=== PATIENT | male | born 1970 | race Caucasian/White ===

== ENCOUNTER 2023-10-08 13:37 | Emergency (ER) | payer MEDICARE, MEDICAID, SELFPAY ==
--- NOTE | ~2023-10-08 | CT_ITS ---
EXAMINATION: CT CERVICAL SPINE WITHOUT CONTRAST CLINICAL INFORMATION: History of cervical surgery. COMPARISON: None available. TECHNIQUE: Multidetector helical imaging of the cervical spine was obtained without intravenous contrast. Multiple axial reformats and coronal/sagittal reconstructions were created the technologist workstation for review. This CT examination was performed using dose optimization techniques as appropriate, variously including the following: *Automated exposure control. *Adjustment of mA and/or kV according to patient size (this includes techniques or standardized protocols for targeted exams where dose is matched to indication/reason for exam; i.e. extremities or head). *Use of iterative reconstruction technique. DLP: 572 mGy-cm FINDINGS: Instrumented anterior fusion of C4-C6. No evidence of hardware fracture or loosening. The atlantooccipital and atlantoaxial articulations remain well aligned. Moderate degenerative arthropathy of the atlantodental articulation. Straightening of the normal cervical lordosis. Otherwise, there is anatomic alignment of the vertebral bodies and posterior elements. No evidence of acute fracture or subluxation. The vertebral body heights are maintained. Moderate degenerative disc disease from C2-C4 and at C6-C7. There is no prevertebral soft tissue swelling. The thyroid gland and remaining cervical soft tissues are within normal limits. The lung apices demonstrate no abnormalities. SPINAL LEVELS: C2-C3: Normal annular contour. There is no uncovertebral joint arthropathy. There is no facet joint arthropathy. There is no neural foraminal stenosis. There is no demonstrated spinal canal stenosis. C3-C4: Mild to moderate disc-osteophyte complex. There is moderate bilateral uncovertebral joint arthropathy. There is moderate right and mild left facet joint arthropathy. There is severe right and moderate left neural foraminal stenosis. There appears to be mild spinal canal stenosis. C4-C5: Fused at this level. There is no uncovertebral joint arthropathy. There is mild bilateral facet joint arthropathy. There is no neural foraminal stenosis. There is no demonstrated spinal canal stenosis. C5-C6: Fused at this level. There is mild bilateral uncovertebral joint arthropathy. There is moderate bilateral facet joint arthropathy. There is mild bilateral neural foraminal stenosis. There is no demonstrated spinal canal stenosis. C6-C7: Mild disc-osteophyte complex. There is mild bilateral uncovertebral joint arthropathy. There is mild bilateral facet joint arthropathy. There is mild bilateral neural foraminal stenosis. There is no demonstrated spinal canal stenosis. C7-T1: Normal annular contour. There is mild bilateral uncovertebral joint arthropathy. There is no facet joint arthropathy. There is no neural foraminal stenosis. There is no demonstrated spinal canal stenosis. CT/CT cervical spine wo IV con IMPRESSION: 1. Instrumented anterior fusion of C4-C6. No evidence of hardware fracture or loosening. 2. No evidence of acute fracture or traumatic subluxation of the cervical spine. 3. Moderate multilevel degenerative spondyloarthropathy of the cervical spine as described in detail above. Most notably on this limited exam without intrathecal contrast, there appears to be mild spinal canal stenosis at C3-C4. Moderate to severe neural foraminal stenoses at C3-C4. Electronically signed by: Rojelio Mosqueda DO 10/08/2023 08:00 PM EDT
--- NOTE | 2023-10-08 13:51 | ED_ITS ---
HPI - General Adult General Chief complaint: Neck Pain/Injury Stated complaint: neck pain Time Seen by Provider: 10/08/23 17:36 Source: patient Mode of arrival: ambulatory Limitations: no limitations History of Present Illness ED Provider: vadim TRISTAN narrative: Patient is a 53-year-old male with history of chronic neck pain, prior cervical surgery with titanium implants presenting to the emergency department with complaint of bilateral neck and shoulder pain for the past 3 days. States this pain is different from his typical chronic pain and is more muscular and spasm sensation. He is prescribed diclofenac and cyclobenzaprine but did not take these for his pain. Denies any weakness, numbness, or tingling to arms. Denies fall or other trauma, denies heavy lifting. Denies fevers/chills/body aches. MD complaint: neck and shoulder pain Onset (ago): day(s) Quality: aching Pain Consistency: constant Relieving factors: none Associated symptoms: denies other symptoms Treatments prior to arrival: none Related Data Previous Rx's ?Medication ?Instructions ?Recorded lidocaine 5 % topical patch 1 patch topical DAILY #15 ea 10/08/23 Allergies Allergy/AdvReac Type Severity Reaction Status Date / Time No Known Allergies Allergy Verified 10/08/23 13:56 Review of Systems 2 Review of Systems: As per HPI. Yes all other systems are reviewed and are negative Constitutional: Constitutional: Reports as per HPI [facility] Social History Social History Advance Directives: No Advance Directives Information Provided: No Physical Exam ED Vital Signs: Vital Signs - 24 hr 10/08/23 13:52 10/08/23 17:39 Temperature 97.9 F 97.8 F Pulse Rate 84 74 Respiratory Rate 16 16 Blood Pressure 138/85 131/83 Pulse Oximetry 99 99 Oxygen Delivery Method Room Air Room Air BMI result Body Mass Index 31.1 Vital signs have been reviewed and appear to be correct. Blood pressure normal. Heart rate normal. Respiratory rate normal. Temperature normal. Oxygen saturation normal. Const General: cooperative, healthy appearing and no acute distress Orientation/consciousness: oriented to person, oriented to place, oriented to time and patient oriented x3 Limitations: no limitations HENMT Head: Yes normocephalic and Yes atraumatic Ears: external ears normal General nose exam: Normal external nose present Face and sinus: Yes face symmetric Mouth: oropharynx normal and moist mucous membranes Throat: Yes uvula midline Eyes Pupils: Equal, round and reactive pupils present Neck Neck: Yes normal visual inspection, Yes full ROM, Yes no lymphadenopathy, Yes no meningeal signs, Yes trachea midline, Yes supple and No anterior neck swelling Resp Effort & Inspection: normal respiratory effort and able to speak in complete sentences Auscultation: clear to auscultation bilaterally Cardio Rate: regular rate Rhythm: regular rhythm Heart sounds: S1 normal heart sound present and S2 normal heart sound present GI Palpation (GI): Soft to palpation and nontender Auscultation: normoactive bowel sounds General: Yes no CVA tenderness Back/Spine/Pelvis Back: no CVA tenderness Cervical Spine: normal cervical lordosis, cervical ROM normal, cervical muscular tenderness (lateral bilaterally), pain with cervical ROM, No Cervical spine tenderness and No step off deformity Thoracic/Lumbar Spine: thoracic and lumbar spine normal to inspection, No thoracic spinal tenderness and No lumbar spinal tenderness Skin General skin exam: elasticity normal and turgor normal Neuro General: oriented to person, oriented to place, oriented to time, patient oriented x3, moves all extremities, no meningeal signs, no focal motor deficits and CN's II-XI intact bilaterally Cranial nerves: Yes Equal, round and reactive pupils present Cognition (Neuro): normal cognition Extrem General: Yes full ROM, Yes no pedal edema and Yes no calf tenderness Right upper extremity: shoulder/upper arm Details: normal to inspection, tenderness (trapezius) and normal ROM Left upper extremity: shoulder/upper arm Details: inspection abnormal and tenderness (trapezius) Psych Mental Status: mental status grossly normal Affect: normal affect Thought process: Normal thought process present Course Course Course Narrative: RME performed by Nimisha Da Silva PA-C. Patient is a 53 year old assigned male at presenting to the emergency department with neck pain. Patient states that he has had surgery for this pain in 2013 but now it is back and worse. Detailed physical exam and review of systems are deferred to the supervisor underwriting clerks. EKG, labs, and imaging ordered. Patient placed back in the waiting room pending room availability and results. Reevaluation(s) Reevaluation #1: CT/CT cervical spine wo IV con IMPRESSION: 1. Instrumented anterior fusion of C4-C6. No evidence of hardware fracture or loosening. 2. No evidence of acute fracture or traumatic subluxation of the cervical spine. 3. Moderate multilevel degenerative spondyloarthropathy of the cervical spine as described in detail above. Most notably on this limited exam without intrathecal contrast, there appears to be mild spinal canal stenosis at C3-C4. Moderate to severe neural foraminal stenoses at C3-C4. Updated on plan of care, advised use of previously prescribed medications including cyclobenzaprine in addition to conservative treatment and Lidoderm patches, outpatient follow-up primary care doctor. No neurological deficits. Stable for discharge Time: 20:17 Medications Administered Discontinued Medications Generic Name Dose Route Start Last Admin Trade Name Cherie PRN Reason Stop Dose Admin Cyclobenzaprine HCl 10 mg 10/08/23 18:41 10/08/23 19:22 Cyclobenzaprine Hcl 10 Mg Tablet PO 10/08/23 18:42 10 mg ONCE ONE Administration Lidocaine 2 patch 10/08/23 18:41 10/08/23 19:22 Lidocaine 4 % Patch Adh..Patch TRANSDERMA 10/08/23 18:42 2 patch ONCE ONE Administration Protocol Medical Decision Making Medical Decision Making [facility] Narrative: Patient is a 53-year-old male with history of chronic neck pain, prior cervical surgery with titanium implants presenting to the emergency department with complaint of bilateral neck and shoulder pain for the past 3 days. On exam patient is awake, A+Ox3, VS WNL, afebrile, normal neurological exam without focal deficits, physical exam findings as above. Given reported symptoms and physical exam findings, initial differential includes cervical muscle strain, shoulder strain, cervical radiculopathy. Labs unremarkable. Flexeril and lidocaine patches ordered. Patient signed out to SALONI Sarmiento pending results of CT scan. Differential Diagnosis Differential Diagnoses: The differential diagnosis associated with the presentation includes As per [facility]. Admission/Observation Consideration of admission/observation: Escalation of care including admission/observation considered Pending results of CT scan. Lab Data [facility] Lab Attestation statement: I reviewed the patient's lab results. As per [facility] 10/08/23 14:05 10/08/23 14:05 Labs: Lab Results 10/08/23 Range/Units 14:05 WBC 6.8 (4.8-10.8) X10*3/uL RBC 4.90 (4.60-5.80) X10*6/uL Hgb 14.5 (14.0-18.0) g/dl Hct 42.4 (42.0-52.0) % MCV 86.5 (80.0-98.0) fL MCH 29.6 (27.0-33.0) pg MCHC 34.2 (31.0-36.0) g/dl RDW 13.2 (11.0-16.0) % Plt Count 256 (160-400) X10*3/uL MPV 10.0 (9.4-12.4) fL Immature Gran % (Auto) 0.1 (0.0-0.4) % Neut % (Auto) 59.1 (45-73) % Lymph % (Auto) 28.2 (20-40) % Sterling % (Auto) 10.0 (2-11) % Eos % (Auto) 2.2 (0-4) % Baso % (Auto) 0.4 (0-2) % Lymph # (Auto) 1.9 (1.2-4.9) X10*3/uL Sterling # (Auto) 0.7 (0.1-1.2) X10*3/uL Eos # (Auto) 0.2 (0.0-0.4) X10*3/uL Baso # (Auto) 0.0 (0.0-0.2) X10*3/uL Abs Immat Gran (auto) 0.01 (0.00-0.03) X10*3/uL Absolute Neuts (auto) 4.0 (2.0-8.3) x10*3/uL Absolute Nucleated RBC 0.000 (0.0-0.012) X10*3/uL Nucleated RBC % (auto) 0.0 (0.0-0.2) /100WBC Sodium 140 (135-145) mmol/L Potassium 4.1 (3.3-5.1) mmol/L Chloride 107 (96-108) mmol/L Carbon Dioxide 26 (22-29) mmol/L Anion Gap 11 L (12-20) BUN 20 H (9-16) mg/dL Creatinine 0.96 (0.5-1.4) mg/dL Estim Creat Clear Calc 101.4 Estimated GFR > 60 Random Glucose 140 H (60-115) mg/dL Calcium 8.7 (8.4-10.2) mg/dL Magnesium 2.0 (1.6-2.6) mg/dL Total Bilirubin 0.3 (0.0-1.0) mg/dL AST 19 (5-37) U/L ALT 33 (0-40) U/L Alkaline Phosphatase 79 (39-117) U/L Troponin I High Sens < 2.7 (<3.5-35.0) ng/L Total Protein 7.0 (6.5-8.0) g/dL Albumin 4.1 (3.5-5.0) g/dL External Record Review External record reviewed: Inpatient record, Office record and Outpatient record Prescription Management I considered prescription management with: Pain Medication Discharge Plan Discharge Clinical Impression: Strain of neck muscle, Strain of shoulder, Cervical radiculopathy Patient Disposition: Home, Self-Care Instructions: Cervical Strain (DC), Muscle Strain (DC) Additional Instructions: You were evaluated in the emergency department with complaint of neck and shoulder pain. Your imaging did not show any evidence of a fracture or other concerning findings. Your pain is likely related to a muscle strain. We recommend taking 600mg ibuprofen or 650mg Tylenol. If necessary, you can alternate these medications every three hours. For example, at noon take Tylenol, then at 3:00 take ibuprofen, then at 6:00 take Tylenol, etc. We recommend that you take your prescribed muscle relaxer called cyclobenzaprine. You are being prescribed topical lidocaine patches which you can wear for up to 12 hours in a 24 hour period. Do not use these in combination with your diclofenac gel. You should follow up with your primary care provider as you may require physical therapy to improve your symptoms. Return to the emergency department if you develop worsening neck pain or stiffness, new weakness, numbness, or tingling to your arm, severe headaches, or any other concerning symptoms. Prescriptions: New lidocaine 5 % adhesive patch,medicated 1 patch topical DAILY Qty: 15 0RF Rx Instructions: leave on most painful area for up to 12 hrs Print Language: [place]
[2023-10-08 13:52] VITALS: BP 138/85; PULSE 84; RESP 16; TEMP 36.6; O2SAT 99; BMI 31.1
--- NOTE | 2023-10-08 13:53 | ECG_ITS ---
Test Reason : NECK PAIN Blood Pressure : / mmHG Vent. Rate : 078 BPM Atrial Rate : 078 BPM P-R Int : 154 ms QRS Dur : 084 ms QT Int : 346 ms P-R-T Axes : 054 005 036 degrees QTc Int : 394 ms Normal sinus rhythm Normal ECG No previous ECGs available Referred By: Nimisha Da Silva Electronically Signed By:DAPHNE SANCHEZ
[2023-10-08 14:10] LABS: MANUAL DIFF FLAG NO
[2023-10-08 14:13] LABS: Basophils Percent Auto 0.4 % (0-2); Eosinophils Absolute Auto 0.2 X10*3/uL (0.0-0.4); Eosinophils Percent Auto 2.2 % (0-4); Hematocrit 42.4 % (42.0-52.0); Hemoglobin 14.5 g/dl (14.0-18.0); Imm Gran Abs Auto 0.01 X10*3/uL (0.00-0.03); Imm Gran Pct Auto 0.1 % (0.0-0.4); Lymphocytes Absolute Auto 1.9 X10*3/uL (1.2-4.9); Lymphocytes Percent Auto 28.2 % (20-40); Mean Corpuscular HGB Conc 34.2 g/dl (31.0-36.0); Mean Corpuscular Hemoglobin 29.6 pg (27.0-33.0); Mean Corpuscular Volume 86.5 fL (80.0-98.0); Monocytes Absolute Auto 0.7 X10*3/uL (0.1-1.2); Neutrophils Percent Auto 59.1 % (45-73); Platelet Count 256 X10*3/uL (160-400); Red Cell Distribution Width 13.2 % (11.0-16.0); White Blood Count 6.8 X10*3/uL (4.8-10.8)
[2023-10-08 14:28] LABS: Alanine Aminotransferase 33 U/L (0-40); Albumin Level 4.1 g/dL (3.5-5.0); Alkaline Phosphatase 79 U/L (39-117); Anion Gap 11 (12-20); Aspartate Amino Transferase 19 U/L (5-37); Bilirubin Total 0.3 mg/dL (0.0-1.0); Blood Urea Nitrogen 20 mg/dL (9-16); Calcium 8.7 mg/dL (8.4-10.2); Carbon Dioxide 26 mmol/L (22-29); Chloride 107 mmol/L (96-108); Creatinine Clr Calc Pharmacy 101.4; Estimated Glomerular Filt Rate > 60; Glucose Random 140 mg/dL (60-115); Potassium 4.1 mmol/L (3.3-5.1); Sodium 140 mmol/L (135-145)
[2023-10-08 14:40] LABS: Troponin-I High Sensitivity < 2.7 ng/L (<3.5-35.0)
[2023-10-08 17:39] VITALS: BP 131/83; PULSE 74; RESP 16; TEMP 36.6; O2SAT 99
--- NOTE | 2023-10-08 17:41 | PC.NURSE ---
PT INTO ROOM WITH STABLE GAIT, HE CONTINUES TO ENDORSE NECK PAIN, AWAITING CT RESULTS AND PROVIDER
[2023-10-08] MEDS: Cyclobenzaprine HCl 10 MG TABLET PO (19:22)
[2023-10-08] MEDS: Lidocaine 4 % Patch ADH..PATCH 2 PATCH TRANSDERMA (19:22)
[2023-10-08 20:27] VITALS: BP 137/78; PULSE 76; RESP 14; TEMP 37; O2SAT 97
[2023-10-08 20:52] VITALS: BP 137/78; PULSE 76; RESP 14; TEMP 37; O2SAT 97
== END 2023-10-08 20:52 | disposition home or self-care (01) ==
PROVIDERS: Physician Assistant Medical; Emergency Provider Internal Medicine; PCP Internal Medicine
DX: M54.12 Radiculopathy, cervical region (principal); M54.2 Cervicalgia; M25.512 Pain in left shoulder; M25.511 Pain in right shoulder; M79.10 Myalgia, unspecified site; Z79.899 Other long term (current) drug therapy
CPT/HCPCS: 36415; 72125; 80053; 83735; 84484; 85025; 93005; 99284

== ENCOUNTER 2024-01-16 14:27 | Outpatient (AMB) | payer MEDICARE, MEDICAID, SELFPAY ==
--- NOTE | 2024-01-16 15:26 | HO.SPINEOV ---
Intake Visit Reasons: Neck pain Intake Note: Mr. Schafer is here today c/o neck pain. Uniformer Required: Yes Uniformer Name: Tablet Allergies No Known Allergies Allergy (Verified 01/16/24 15:27) Assessment & Plan Assessment & Plan (1) Lumbar radiculopathy: Code(s): M54.16 - Radiculopathy, lumbar region Category: Medical Plan Lasha is a pleasant 53 year old male who is self referred to our office for low back pain with shooting pains into his bilateral lower extremities. He states this has been ongoing for the past 8 days. When reporting the shooting pain he states that it goes down the lateral aspect of both legs terminating near the calf. He states that when his pain is exacerbated he also feels numbness and tingling in the same distribution. He describes an inciting incident of bending over to brick picker a water bottle he days ago during which time he felt a pop in his low back. He has a pertinent past medical history of 2 spinal procedures. He had an L3-5 lumbar fusion completed in June of 2012 in [place]. He also had a C3-4 ACDF completed in 2011 in [place]. He does feel as though he has good results from these surgeries. He reports that sitting for prolonged periods of time exacerbates his pain. Standing helps to alleviate his pain. He has been taking baclofen, gabapentin, diclofenac gel on an effort to mitigate the pain. He also has tried [id number] remedies such as Tylenol and ibuprofen. The last time that he went to physical therapy was back in 2011. He has had injections in his lumbar spine as recently as [address] Aiken at [facility]. He felt these injections were modestly helpful but were short-lived. PMH: High blood pressure, hyperlipidemia. Prediabetes on metformin monotherapy. Social hx: The patient does not smoke, reports no substance use. Medications: Baclofen, gabapentin, diclofenac gel, losartan, metformin, atorvastatin, cyclobenzaprine. Allergies: No known drug allergies. Physical exam: The patient has 5/5 strength in his upper and lower extremities. He has no significant sensational deficits. His reflexes are 2+ intact. He ambulates well but has a slightly antalgic gait favoring the left side. He utilizes a cane to ambulate. (-) bilateral straight leg raise, (-) Adan's, (-) Babinski's, (-) clonus. Imaging review: There was no pertinent imaging to review in regards to his lumbar spine. The only imaging is a CT of the cervical spine completed at [facility] over the summer. Impression: Lasha is a pleasant 53-year-old male who comes in today with a chief complaint of low back pain and shooting pains into his bilateral lower extremities. He reports this is acute onset and happened roughly 8 days ago. He has not attempted any conservative measures for this issue as of yet. He does have a history of 2 previous spinal procedures, but is history and disclosure were most consistent with a acute disc herniation versus hardware malfunction. I would like to send the patient for a course of physical therapy to see if the symptoms do not resolve on their own as many cases of disc herniation are self-limiting. If it does not resolve I would like see him back in the clinic for subsequent evaluation and possible imaging studies. Thank you for allowing us to care for your patient. The total time spent with this visit with this patient was 45 minutes reviewing history, physical exam, MRI imaging review, and implementation of treatment plan or further diagnostic testing Adonay Gorman MD,PhD [facility] Orders: Orders PT Evaluation and Treatment 01/16/24 M54.16 - Radiculopathy, lumbar region Coding Level of Care Code New Pt Level 4 (49984) Diagnoses Lumbar radiculopathy M54.16
== END 2024-01-16 15:51 | disposition home or self-care (01) ==
PROVIDERS: PCP Internal Medicine; Visit Provider Physician Assistant
DX: M54.16 Radiculopathy, lumbar region (principal)
CPT/HCPCS: 99204

== ENCOUNTER → 2024-01-16 14:27 | Outpatient (BNVA) | payer MEDICARE, MEDICAID, SELFPAY | PROVIDERS: PCP Internal Medicine; Visit Provider Physician Assistant | DX: M54.16 Radiculopathy, lumbar region (principal) | CPT/HCPCS: 99202 ==

== ENCOUNTER 2024-03-18 15:09 | Outpatient (RCR) | payer MEDICARE, MEDICAID, SELFPAY ==
--- NOTE | 2024-01-31 11:45 | MHC.PT.EP ---
[facility] [place] Office [place] Office [place] Office [address] Julio Lino [address] [phone] F: [phone] F: [phone] F: [phone] F: [phone] Physical Therapy Plan of Care Date of Evaluation: 01/29/24 Date of Surgery: 2011 Diagnosis: Radiculopathy, lumbar region Pt has history of spine surgery L3-L5 fusion Assessment: Pt is a pleasant and motivated 53yo M who presents to PT with low back pain with intermittent radicluar symptoms in LE's after bending down to meat pickler a water bottle. He has history of L3-L5 lumbar fusion in 2011. He presents to PT with current impairments in pain, decreased ROM, decreased core stabilization, decreased strength, soft tissue restrictions, impaired posture, and impaired body mechanics. He is a good candidate for skilled PT in order to address current impairments to facilitate return to PLOF. He is recommended to be seen 2x/week for 4 weeks and will be reassessed at that time Frequency and Duration: The patient will be seen 2x/week for 4 weeks Short Term Goals: Pt will be I with HEP to promote self management of symptoms Pt will have centralization of symptoms Custodial Goals: Pt will demonstrate ability to squat and meat pickler object from floor with proper mechanics and minimal to no pain or discomfort Pt will tolerate prolonged standing and walking on even and uneven surfaces without pain or discomfort Pt will demonstrate improvements in function as evidenced by statistically significant improvement in LEFI outcome measure Treatment Plan: Modalities to reduce pain, spasms and effusion. Manual therapy to restore motion and function. Therapeutic exercise to improve strength and flexibility. Neuromuscular re-education for posture and balance. Therapeutic activities to return to functional activities of daily living. Electronically signed by: Elaine Lopez, PT, DPT Please sign and return to therapist. Thank you for your referral.
--- NOTE | 2024-03-18 17:23 | MHC.PT.DC ---
[facility] [place] Office [place] Office [place] Office [address] Julio Lino [address] [phone] F: [phone] F: [phone] F: [phone] F: [phone] Physical Therapy Discharge Report Diagnosis: Radiculopathy, lumbar region Pt has history of spine surgery L3-L5 fusion Date of Surgery: 2011 Date of Evaluation: 01/29/24 Date of Discharge: 03/18/24 Treatments to Date: 12 Cancellations to Date: No Shows to Date: Discharge Status: Improved Function Independent with HEP Discharge Summary: Pt has made good progress since SOC. He met his STGs and is making good progress toward his LTGs. He has had a decrease in pain and has demonstrated improvements in strength and body mechanics noted throughout sessions. He is independent and compliant with HEP. He is being D/C from skilled PT at this time Electronically signed by: Elaine Lopez, PT, DPT Please sign and return to therapist. Thank you for your referral.
== END 2024-03-18 17:23 | disposition home or self-care (01) ==
LOC: HO.PT 15:09
PROVIDERS: PCP Internal Medicine; Visit Provider Physician Assistant
DX: M54.16 Radiculopathy, lumbar region (principal)
CPT/HCPCS: 97110; 97140; 97162; 97530

== ENCOUNTER 2025-01-23 11:05 | Outpatient (AMB) | payer MEDICAID, SELFPAY ==
--- NOTE | 2025-01-23 11:08 | MHC.OFFVIS ---
Vital Signs 01/23/25 11:25 Height 5 ft 9 in Weight 210 lb BMI 31.0 BP 150/77 H Blood Pressure Location Lt brachial Position Sitting Pulse 83 Pulse Source Pulse Oximeter Pulse Oximetry (%) 98 Oxygen Delivery Method Room Air Intake Visit Reasons: DISC DEGENERATION Intake Note: Pain today 07/22 [employer] Required: Yes [employer]ader Language: Tristanian Allergies No Known Allergies Allergy (Verified 01/16/24 15:27) HPI Comments Details: The patient is a 54 year old male presenting for an initial evaluation of chronic low back and neck pain. He has a history of chronic neck and low back pain that radiates from his neck down his shoulders to both legs. He underwent a C3-C4 anterior cervical fusion in 2011 and a lumbar surgery in 2012, both in [place]. A prior cervical spine MRI showed moderate spinal stenosis. He completed 12 sessions of physical therapy about a year ago with no improvement. Past treatments include Tylenol, ibuprofen, lidocaine patch, gabapentin, baclofen, diclofenac gel, and cyclobenzaprine. He also received multiple injections that provided minimal, short-lived relief and was previously followed by [facility] for 5 years. He was evaluated by the [facility] for neurosurgery in January 2024 and was advised to get an updated MRI and follow up, which has not yet occurred. The patient has a history of uncontrolled type 2 diabetes mellitus, with a recent A1c of 12.1 that has since decreased to 10.1. His A1c was reportedly 5.9 after returning from [place]. His fasting blood glucose this morning was 140. He takes metformin three times a day, which causes stomach upset, and glipizide. He reports symptoms of peripheral neuropathy in both feet, including numbness and tingling in his feet and burning pain worse at night. He has a family history of diabetes in his mother and his late [id number]. Regarding his diet, the patient states he adheres to a diabetic diet and has stopped drinking soda, now primarily drinking water, and has reduced his bread intake. Denies alcohol or tobacco consumption or recreational drug use. Pain Description - Location: Low back and neck. - Radiation: Pain travels from the neck, down the shoulders, to both legs. - Quality: The pain is described as constant, pulsing, trapping, stabbing, and aching. - Associated Symptoms: Numbness, burning and tingling. - Exacerbating Factors: Pain worsens with any movement, including walking, bending, and lifting, as well as with weather changes. - Impact on Function: The patient sometimes uses a cane for support when the pain is intense. Pain Management - Affect: Not explicitly discussed. - Analgesia: The patient has tried OTC Tylenol and ibuprofen. - Past medication trials include lidocaine patch, gabapentin, baclofen, diclofenac gel, and cyclobenzaprine. - He has also had multiple injections with minimal and short-lived relief and no improvement with PT. - Adverse Effects: He reports that metformin messed up his stomach. - Activities of Daily Living: Pain is present with any movement, including walking, bending, and lifting. - He uses a cane for support when pain is intense. - Aberrant Drug-Related Behaviors: No aberrant behaviors were discussed. [facility] Medical History (Updated 01/25/25 @ 22:11 by BERNADETTE Cruz) Type 2 diabetes mellitus Hypertension Disc degeneration, lumbar DDD (degenerative disc disease), cervical Anxiety ANTONIO (obstructive sleep apnea) Mixed hyperlipidemia Surgical History (Updated 01/23/25 @ 12:09 by BERNADETTE Cruz) History of fusion of cervical spine (~2011) History of lumbar surgery (~2012) Review of Systems Narrative - Musculoskeletal: Reports chronic low back and neck pain. - Reports pain with movement including walking, bending, and lifting. - Neurological: Reports pain that radiates down his shoulders to his legs. - Reports numbness and tingling in his extremities. - Reports burning and [id number] sensation in his feet. - Integumentary: Denies any open sores or wounds on his feet or lower extremities. Const All systems reviewed & are unremarkable except as noted in HPI and below Physical Exam Vital Signs: Last Vital Signs Pulse 83 01/23/25 11:25 BP 150/77 H 01/23/25 11:25 Pulse Ox 98 01/23/25 11:25 Oxygen Delivery Method Room Air 01/23/25 11:25 BMI result Body Mass Index 31.0 General: Appears afebrile. Alert and oriented. Mood and affect appropriate. Follows and participates in conversation appropriately. Respiratory effort is unlabored. No cough. Able to transition from sit to stand unassisted. Uses cane with ambulation. Ambulates with bilaterally normal heel strike and toe off. Mildly antalgic gait. General: Yes no CVA tenderness Back/Spine/Pelvis Other: Lumbar spine shows limited and painful flexion; extension is limited but not painful.Cervical range of motion is painful with flexion and extension; motion is limited due to prior fusion. Straight leg raise elicits posterior leg tightness without radicular symptoms. Patient reports altered sensation in the feet consistent with neuropathy including tingling, burning, and [id number]. Demonstrates 5/5 strength of quadriceps bilaterally as well as flexion/dorsiflexion of bilateral feet against resistance. 2+ pedal pulses bilaterally. Diminished patellar and achilles reflexes bilaterally. Facet loading test positive bilaterally. No groin pain with I/E hip rotations. Valsalva maneuver negative. Back: no CVA tenderness Cervical Spine: cervical ROM normal, cervical muscular tenderness, pain with cervical ROM, Cervical spine scars present and No Cervical spine tenderness Thoracic/Lumbar Spine: thoracic and lumbar spine normal to inspection, Thoracic/lumbar spine scar(s), Lasegue's sign negative, straight leg raise negative bilaterally, pain with thoraco-lumbar ROM, thoraco-lumbar ROM limited, No thoracic spinal tenderness and lumbar spinal tenderness (L4-S1) Sacroiliac joints: bilaterally (L>R; +David's on the left) tender to palpation Extrem Other: There is a decreased sensation over the soles of both feet and toes. Reports numbness, burning, tingling and bilateral foot pain, worse at night time. No breaks in the skin. No soft tissue swelling or warmth. +2 pedal pulses bilaterally. General: Yes capillary refill normal, Yes no clubbing, cyanosis or edema and Yes no calf tenderness Results Reviewed Results Reviewed: CT CERVICAL SPINE WITHOUT CONTRAST 10/08/23 CLINICAL INFORMATION: History of cervical surgery. COMPARISON: None available. FINDINGS: Instrumented anterior fusion of C4-C6. No evidence of hardware fracture or loosening. The atlantooccipital and atlantoaxial articulations remain well aligned. Moderate degenerative arthropathy of the atlantodental articulation. Straightening of the normal cervical lordosis. Otherwise, there is anatomic alignment of the vertebral bodies and posterior elements. No evidence of acute fracture or subluxation. The vertebral body heights are maintained. Moderate degenerative disc disease from C2-C4 and at C6-C7. There is no prevertebral soft tissue swelling. The thyroid gland and remaining cervical soft tissues are within normal limits. The lung apices demonstrate no abnormalities. SPINAL LEVELS: C2-C3: Normal annular contour. There is no uncovertebral joint arthropathy. There is no facet joint arthropathy. There is no neural foraminal stenosis. There is no demonstrated spinal canal stenosis. C3-C4: Mild to moderate disc-osteophyte complex. There is moderate bilateral uncovertebral joint arthropathy. There is moderate right and mild left facet joint arthropathy. There is severe right and moderate left neural foraminal stenosis. There appears to be mild spinal canal stenosis. C4-C5: Fused at this level. There is no uncovertebral joint arthropathy. There is mild bilateral facet joint arthropathy. There is no neural foraminal stenosis. There is no demonstrated spinal canal stenosis. C5-C6: Fused at this level. There is mild bilateral uncovertebral joint arthropathy. There is moderate bilateral facet joint arthropathy. There is mild bilateral neural foraminal stenosis. There is no demonstrated spinal canal stenosis. C6-C7: Mild disc-osteophyte complex. There is mild bilateral uncovertebral joint arthropathy. There is mild bilateral facet joint arthropathy. There is mild bilateral neural foraminal stenosis. There is no demonstrated spinal canal stenosis. C7-T1: Normal annular contour. There is mild bilateral uncovertebral joint arthropathy. There is no facet joint arthropathy. There is no neural foraminal stenosis. There is no demonstrated spinal canal stenosis. IMPRESSION: 1. Instrumented anterior fusion of C4-C6. No evidence of hardware fracture or loosening. 2. No evidence of acute fracture or traumatic subluxation of the cervical spine. 3. Moderate multilevel degenerative spondyloarthropathy of the cervical spine as described in detail above. Most notably on this limited exam without intrathecal contrast, there appears to be mild spinal canal stenosis at C3-C4. Moderate to severe neural foraminal stenoses at C3-C4. Assessment & Plan Assessment & Plan (1) Lumbar radiculopathy: Code(s): M54.16 - Radiculopathy, lumbar region Category: Medical (2) DDD (degenerative disc disease), cervical: Code(s): M50.30 - Other cervical disc degeneration, unspecified cervical region Category: Medical (3) Chronic pain syndrome: Code(s): G89.4 - Chronic pain syndrome Category: Medical (4) Vertebrogenic low back pain: Code(s): M54.51 - Vertebrogenic low back pain Category: Medical (5) Lumbar post-laminectomy syndrome: Code(s): M96.1 - Postlaminectomy syndrome, not elsewhere classified Category: Medical (6) Chronic painful diabetic neuropathy: Code(s): E11.40 - Type 2 diabetes mellitus with diabetic neuropathy, unspecified Category: Medical (7) Lumbosacral spondylosis: Code(s): M47.817 - Spondylosis without myelopathy or radiculopathy, lumbosacral region Category: Medical Plan Given the patient's uncontrolled type 2 diabetes, with an A1c of 10.1, steroidal injections and other interventional treatments for his chronic neck and back pain are contraindicated at this time. An MRI of the lumbar spine will be ordered to further evaluate his low back and leg symptoms. For management of his diabetic peripheral neuropathy, the patient may be a candidate for Qutenza patch application. Discussed risks and benefits of different treatment options including topical 8% capsaicin application. Spinal cord stimulation was discussed as a potential future treatment option for his chronic pain, particularly if he is not a surgical candidate after his MRI evaluation and once his diabetes is better controlled with an A1c of 7.5 or below. All questions and concerns have been answered and patient agreed with the treatment plan. Follow up for MRI results and sooner as needed. Patient was informed and verbally consented to the use of an ambient scribe for clinic note documentation during this visit. Orders: Orders MR lumbar spine wo con 01/23/25 G89.4 - Chronic pain syndrome, M54.16 - Radiculopathy, lumbar region, M54.51 - Vertebrogenic low back pain, M96.1 - Postlaminectomy syndrome, not elsewhere classified Coding Level of Care Code New Pt Level 4 (74601) Diagnoses Lumbar radiculopathy M54.16 DDD (degenerative disc disease), cervical M50.30 Chronic pain syndrome G89.4 Vertebrogenic low back pain M54.51 Lumbar post-laminectomy syndrome M96.1 Chronic painful diabetic neuropathy E11.40 Lumbosacral spondylosis M47.817
[2025-01-23 11:25] VITALS: BP 150/77; PULSE 83; O2SAT 98; BMI 31.0
== END 2025-01-23 11:57 | disposition home or self-care (01) ==
LOC: HO.PMC 11:06
PROVIDERS: PCP Internal Medicine; Visit Provider Nurse Practitioner Family
DX: M54.16 Radiculopathy, lumbar region (principal); M50.30 Other cervical disc degeneration, unspecified cervical region; G89.4 Chronic pain syndrome; M54.51 Vertebrogenic low back pain; M96.1 Postlaminectomy syndrome, not elsewhere classified; E11.40 Type 2 diabetes mellitus with diabetic neuropathy, unspecified; M47.817 Spondylosis without myelopathy or radiculopathy, lumbosacral region
CPT/HCPCS: 99204

== ENCOUNTER → 2025-01-23 11:05 | Outpatient (BNVA) | payer MEDICAID, SELFPAY | PROVIDERS: PCP Internal Medicine; Visit Provider Nurse Practitioner Family | DX: G89.4 Chronic pain syndrome (principal); M54.16 Radiculopathy, lumbar region; M50.30 Other cervical disc degeneration, unspecified cervical region; M54.51 Vertebrogenic low back pain; M96.1 Postlaminectomy syndrome, not elsewhere classified; E11.40 Type 2 diabetes mellitus with diabetic neuropathy, unspecified; M47.817 Spondylosis without myelopathy or radiculopathy, lumbosacral region; Z79.84 Long term (current) use of oral hypoglycemic drugs | CPT/HCPCS: 99212 ==